=== PATIENT | female | born 1985 | race Two or more races ===

== ENCOUNTER 2022-12-28 05:42 | Observation (INO) | payer OTHER ==
[2022-12-28 05:45] VITALS: BMI 30.8
[2022-12-28 06:36] LABS: BASO % 0.8 % (0-2.0); EOS % 2.2 % (0-4.5); HEMATOCRIT 40.2 % (32.4-45.2); HEMOGLOBIN 13.1 GM/dL (10.7-15.3); LYMPH % 34.1 % (8-40); MCHC 32.6 g/dl (32.0-36.0); MEAN CELL VOLUME 76.8 fl (80-96); MEAN PLT VOLUME 7.9 fl (7.5-11.1); MONO % 8.9 % (3.8-10.2); PLATELET COUNT 279 10^3/uL (134-434); RBC 5.24 M/mm3 (3.60-5.2); WHITE BLOOD COUNT 6.6 K/mm3 (4.0-10.0)
[2022-12-28] MEDS ORDERED: METOCLOPRAMIDE HCL INJECTION 10 MG/2 ML VIAL IVPB ONE (06:40)
[2022-12-28] MEDS ORDERED: METOCLOPRAMIDE HCL INJECTION 10 MG/2 ML VIAL ONE (06:41)
[2022-12-28 06:48] LABS: INR 1.1 (0.83-1.09); PROTHROMBIN TIME (PATIENT) 12.7 SEC (9.7-13.0)
[2022-12-28 06:51] LABS: ACTIVATED PTT 25.8 SECONDS (25.2-36.5)
[2022-12-28 07:01] LABS: POTASSIUM 3.6 mmol/L (3.5-5.1)
[2022-12-28 07:03] LABS: ALBUMIN 3.1 g/dl (3.4-5.0)
[2022-12-28 07:04] LABS: BLOOD UREA NITROGEN 13.4 mg/dL (7-18)
[2022-12-28 07:06] LABS: CREATININE 0.9 mg/dL (0.55-1.3)
[2022-12-28 07:08] LABS: BILIRUBIN,TOTAL 0.6 mg/dL (0.2-1); TOT PROT 7.1 g/dl (6.4-8.2)
[2022-12-28] MEDS ORDERED: SODIUM CHLORIDE 0.9% 500 ML INFUS.BAG IV ONE ×2 (09:50→09:52)
[2022-12-28 10:45] LABS: BASO % 0.5 % (0-2.0); EOS % 0.2 % (0-4.5); HEMATOCRIT 34.8 % (32.4-45.2); HEMOGLOBIN 11.2 GM/dL (10.7-15.3); MCH 25.1 pg (25.7-33.7); MCHC 32.1 g/dl (32.0-36.0); MEAN CELL VOLUME 78.2 fl (80-96); MEAN PLT VOLUME 7.7 fl (7.5-11.1); MONO % 5.8 % (3.8-10.2); NEUT % 79.5 % (42.8-82.8); PLATELET COUNT 255 10^3/uL (134-434); RBC 4.45 M/mm3 (3.60-5.2); RDW 14.6 % (11.6-15.6); WHITE BLOOD COUNT 9.6 K/mm3 (4.0-10.0)
[2022-12-28] MEDS ORDERED: ACETAMINOPHEN 1000 MG/100 ML BAG IVPB ONE (14:06)
[2022-12-28] MEDS ORDERED: ACETAMINOPHEN INJECTION 100 ML IVPB ONE (14:21)
[2022-12-28 15:09] LABS: EPI CELLS 7 /uL (0-25.1); HYALINE CASTS 0 /uL (0-3.1); PH,URINE 5.5 (5.0-8.0); URINE APPEARANCE CLEAR; URINE BACTERIA 125 /uL (0-1359); URINE BILIRUBIN NEGATIVE (NEGATIVE); URINE COLOR YELLOW; URINE GLUCOSE (UA) NEGATIVE (NEGATIVE); URINE KETONE 1+ (NEGATIVE); URINE LEUK ESTERASE 1+ (NEGATIVE); URINE NITRITE NEGATIVE (NEGATIVE); URINE PROTEIN TRACE (NEGATIVE); URINE RBC 2924 /uL (0-23.9); URINE UROBILINOGEN 0.2 mg/dL (0.2-1.0); URINE WBC 35 /uL (0-25.8)
[2022-12-28] MEDS ORDERED: METHYLERGONOVINE MALEATE 0.2 MG/1 ML AMP IM ONE ×2 (15:14→18:15)
[2022-12-28] MEDS ORDERED: LACTATED RINGERS SOLUTION 1,000 ML IV SCH (15:15)
[2022-12-28] MEDS ORDERED: TRIMETHOBENZAMIDE HCL 200MG/2ML INJ IM ONE ×2 (19:28→20:03)
[2022-12-29] MEDS: LEVOTHYROXINE NA 150 MCG TABLET PO SCH (06:02)
[2022-12-29] MEDS: ACETAMINOPHEN 325 MG TABLET (FP) PO PRN ×2 (06:54→20:22)
[2022-12-29 07:33] LABS: INR 1.17 (0.83-1.09); PROTHROMBIN TIME (PATIENT) 13.5 SEC (9.7-13.0)
[2022-12-29 07:33] LABS: BASO % 0.4 % (0-2.0); EOS % 1.5 % (0-4.5); HEMATOCRIT 21.5 % (32.4-45.2); HEMOGLOBIN 7.1 GM/dL (10.7-15.3); LYMPH % 23.9 % (8-40); MCH 25.7 pg (25.7-33.7); MCHC 33.3 g/dl (32.0-36.0); MEAN CELL VOLUME 77.3 fl (80-96); MEAN PLT VOLUME 7.8 fl (7.5-11.1); MONO % 7.4 % (3.8-10.2); NEUT % 66.8 % (42.8-82.8); PLATELET COUNT 207 10^3/uL (134-434); RBC 2.78 M/mm3 (3.60-5.2); RDW 14.4 % (11.6-15.6); WHITE BLOOD COUNT 9.5 K/mm3 (4.0-10.0)
[2022-12-29 07:36] LABS: ACTIVATED PTT 25.7 SECONDS (25.2-36.5)
[2022-12-29 07:47] LABS: CHLORIDE 106 mmol/L (98-107); POTASSIUM 3.5 mmol/L (3.5-5.1); SODIUM 139 mmol/L (136-145)
[2022-12-29 07:53] LABS: ANION GAP 6 mmol/L (4-13); BLOOD UREA NITROGEN 11.2 mg/dL (7-18); CO2 26 mmol/L (21-32); GLUCOSE,RANDOM 97 mg/dL (74-106); MAGNESIUM 1.5 mg/dL (1.8-2.4)
[2022-12-29 07:56] LABS: CREATININE 0.7 mg/dL (0.55-1.3); PHOSPHOROUS 3.9 mg/dL (2.5-4.9); SGOT/AST 16 U/L (15-37); SGPT/ALT 16 U/L (13-61)
[2022-12-29 07:57] LABS: BILIRUBIN,TOTAL 0.7 mg/dL (0.2-1)
[2022-12-29 07:58] LABS: ALK PHOS 43 U/L (45-117)
[2022-12-29 08:21] LABS: ALBUMIN 2.2 g/dl (3.4-5.0); CALCIUM 6.8 mg/dL (8.5-10.1)
[2022-12-29] MEDS ORDERED: MAGNESIUM 2GM/50ML STERILE WATER IVPB IVPB ONE (09:45)
[2022-12-29] MEDS ORDERED: CALCIUM CARBONATE 650 MG TABLET PO ONE (11:59)
[2022-12-29] MEDS ORDERED: CALCIUM GLUCONATE 10% - 1,000 MG/10 ML VIAL IVPUSH ONE (12:22)
[2022-12-29] MEDS ORDERED: METOCLOPRAMIDE HCL 10 MG TABLET (FP) PO ONE (13:15)
[2022-12-29 13:24] LABS: HEMATOCRIT 20.8 % (32.4-45.2); HEMOGLOBIN 7.1 GM/dL (10.7-15.3); MCH 25.9 pg (25.7-33.7); MCHC 34.2 g/dl (32.0-36.0); MEAN CELL VOLUME 75.9 fl (80-96); PLATELET COUNT 220 10^3/uL (134-434); RBC 2.75 M/mm3 (3.60-5.2); RDW 14.9 % (11.6-15.6); WHITE BLOOD COUNT 9.1 K/mm3 (4.0-10.0)
[2022-12-29] MEDS: CALCITRIOL 0.25 MCG CAPSULE (FP) PO SCH ×2 (13:36→21:57)
[2022-12-29] MEDS: AMPICILLIN NA/SULBACTAM NA 1.5 GM in SODIUM CHLORIDE 100 ML IVPB SCH ×3 (14:52→23:12)
[2022-12-29] MEDS ORDERED: CALCIUM CARBONATE 650 MG TABLET PO SCH (15:00)
[2022-12-29] MEDS ORDERED: TRANEXAMIC ACID 1000 MG/10 ML VIAL IVPUSH ONE (15:00)
[2022-12-29] MEDS ORDERED: MISOPROSTOL 200 MCG TABLET PO STA (15:36)
[2022-12-29 18:34] LABS: BASO % 0.4 % (0-2.0); EOS % 2.5 % (0-4.5); HEMATOCRIT 24.8 % (32.4-45.2); HEMOGLOBIN 8.3 GM/dL (10.7-15.3); LYMPH % 19.5 % (8-40); MCH 26.4 pg (25.7-33.7); MCHC 33.6 g/dl (32.0-36.0); MEAN CELL VOLUME 78.5 fl (80-96); MEAN PLT VOLUME 7.7 fl (7.5-11.1); MONO % 8.9 % (3.8-10.2); NEUT % 68.7 % (42.8-82.8); PLATELET COUNT 210 10^3/uL (134-434); RBC 3.16 M/mm3 (3.60-5.2); RDW 15.5 % (11.6-15.6); WHITE BLOOD COUNT 13.1 K/mm3 (4.0-10.0)
[2022-12-29] MEDS ORDERED: AZITHROMYCIN 250 MG TABLET PO ONE ×2 (20:53→22:00)
[2022-12-29] MEDS ORDERED: MISOPROSTOL 200 MCG TABLET PR ONE (22:00)
[2022-12-29] MEDS: CALCIUM CARBONATE 650 MG TABLET PO SCH (23:05)
[2022-12-30] MEDS: AMPICILLIN NA/SULBACTAM NA 1.5 GM in SODIUM CHLORIDE 100 ML IVPB SCH ×2 (02:15→09:26)
[2022-12-30] MEDS: LEVOTHYROXINE NA 150 MCG TABLET PO SCH (06:23)
[2022-12-30] MEDS: CALCITRIOL 0.25 MCG CAPSULE (FP) PO SCH ×3 (06:23→22:52)
[2022-12-30 07:25] LABS: BASO % 0.5 % (0-2.0); EOS % 3.3 % (0-4.5); HEMATOCRIT 24.5 % (32.4-45.2); HEMOGLOBIN 8.4 GM/dL (10.7-15.3); LYMPH % 22.8 % (8-40); MCH 26.8 pg (25.7-33.7); MCHC 34.2 g/dl (32.0-36.0); MEAN CELL VOLUME 78.3 fl (80-96); MEAN PLT VOLUME 7.7 fl (7.5-11.1); NEUT % 66.4 % (42.8-82.8); PLATELET COUNT 178 10^3/uL (134-434); RBC 3.13 M/mm3 (3.60-5.2); RDW 14.8 % (11.6-15.6); WHITE BLOOD COUNT 11.4 K/mm3 (4.0-10.0)
[2022-12-30 07:33] LABS: CHLORIDE 106 mmol/L (98-107); POTASSIUM 3.4 mmol/L (3.5-5.1); SODIUM 139 mmol/L (136-145)
[2022-12-30 07:36] LABS: ALBUMIN 2.3 g/dl (3.4-5.0); ANION GAP 6 mmol/L (4-13); BLOOD UREA NITROGEN 9.8 mg/dL (7-18); CO2 27 mmol/L (21-32); GLUCOSE,RANDOM 96 mg/dL (74-106); MAGNESIUM 1.4 mg/dL (1.8-2.4)
[2022-12-30 07:39] LABS: CREATININE 0.7 mg/dL (0.55-1.3); PHOSPHOROUS 3.4 mg/dL (2.5-4.9); SGOT/AST 14 U/L (15-37); SGPT/ALT 17 U/L (13-61)
[2022-12-30 07:40] LABS: BILIRUBIN,TOTAL 0.3 mg/dL (0.2-1)
[2022-12-30 07:42] LABS: ALK PHOS 41 U/L (45-117)
[2022-12-30] MEDS: ACETAMINOPHEN 325 MG TABLET (FP) PO PRN ×2 (08:42→15:15)
[2022-12-30] MEDS ORDERED: MAGNESIUM 2GM/50ML STERILE WATER IVPB IVPB ONE (09:00)
[2022-12-30] MEDS: CALCIUM CARBONATE 650 MG TABLET PO SCH ×2 (10:06→22:52)
[2022-12-30] MEDS ORDERED: POTASSIUM CHLORIDE TABS 20 MEQ TABLET.ER (FP) PO ONE (13:30)
[2022-12-30] MEDS: CALCIUM GLUCONATE IN NACL 1 GM/50 ML BAG IVPB SCH ×2 (13:47→15:10)
[2022-12-30] MEDS: METOCLOPRAMIDE HCL 10 MG TABLET (FP) PO SCH ×3 (17:35→22:52)
[2022-12-30] MEDS: PIPERACILLIN/TAZOB 3.375 GM 3.375 GM in DEXTROSE 5%-WATER - 50 ML IVPB SCH (17:35)
[2022-12-30 19:47] LABS: BASO % 0.3 % (0-2.0); EOS % 2.6 % (0-4.5); HEMATOCRIT 24.8 % (32.4-45.2); HEMOGLOBIN 8.3 GM/dL (10.7-15.3); LYMPH % 16.6 % (8-40); MCH 26.3 pg (25.7-33.7); MCHC 33.5 g/dl (32.0-36.0); MEAN CELL VOLUME 78.6 fl (80-96); MONO % 5.4 % (3.8-10.2); NEUT % 75.1 % (42.8-82.8); PLATELET COUNT 198 10^3/uL (134-434); RBC 3.16 M/mm3 (3.60-5.2); WHITE BLOOD COUNT 12.5 K/mm3 (4.0-10.0)
[2022-12-31] MEDS: PIPERACILLIN/TAZOB 3.375 GM 3.375 GM in DEXTROSE 5%-WATER - 50 ML IVPB SCH ×2 (02:24→09:06)
[2022-12-31] MEDS: ACETAMINOPHEN 325 MG TABLET (FP) PO PRN ×2 (05:42→12:01)
[2022-12-31] MEDS: CALCITRIOL 0.25 MCG CAPSULE (FP) PO SCH ×2 (05:42→14:22)
[2022-12-31] MEDS: LEVOTHYROXINE NA 150 MCG TABLET PO SCH (06:41)
[2022-12-31] MEDS: METOCLOPRAMIDE HCL 10 MG TABLET (FP) PO SCH ×2 (06:41→12:01)
[2022-12-31 08:13] LABS: BASO % 0.4 % (0-2.0); EOS % 3.2 % (0-4.5); HEMOGLOBIN 7.6 GM/dL (10.7-15.3); LYMPH % 18.3 % (8-40); MCH 26.3 pg (25.7-33.7); MCHC 33.2 g/dl (32.0-36.0); MEAN CELL VOLUME 79.3 fl (80-96); MEAN PLT VOLUME 7.4 fl (7.5-11.1); MONO % 5.7 % (3.8-10.2); NEUT % 72.4 % (42.8-82.8); PLATELET COUNT 207 10^3/uL (134-434); RDW 15.2 % (11.6-15.6); WHITE BLOOD COUNT 11.7 K/mm3 (4.0-10.0)
[2022-12-31 08:32] LABS: HEMOGLOBIN 7.7 GM/dL (10.7-15.3); MCH 26.6 pg (25.7-33.7); MCHC 33.6 g/dl (32.0-36.0); MEAN CELL VOLUME 79.3 fl (80-96); MEAN PLT VOLUME 7.7 fl (7.5-11.1); PLATELET COUNT 211 10^3/uL (134-434); RDW 14.7 % (11.6-15.6); WHITE BLOOD COUNT 12.2 K/mm3 (4.0-10.0)
[2022-12-31 08:35] LABS: CHLORIDE 105 mmol/L (98-107); POTASSIUM 3.6 mmol/L (3.5-5.1); SODIUM 138 mmol/L (136-145)
[2022-12-31 08:38] LABS: GLUCOSE,RANDOM 104 mg/dL (74-106)
[2022-12-31 08:39] LABS: ALBUMIN 2.4 g/dl (3.4-5.0); ANION GAP 6 mmol/L (4-13); BLOOD UREA NITROGEN 10.9 mg/dL (7-18); CO2 27 mmol/L (21-32); MAGNESIUM 1.6 mg/dL (1.8-2.4)
[2022-12-31 08:41] LABS: SGPT/ALT 19 U/L (13-61)
[2022-12-31 08:42] LABS: CREATININE 0.7 mg/dL (0.55-1.3); PHOSPHOROUS 5.1 mg/dL (2.5-4.9); SGOT/AST 16 U/L (15-37)
[2022-12-31 08:43] LABS: BILIRUBIN,TOTAL 0.4 mg/dL (0.2-1); TOT PROT 5.3 g/dl (6.4-8.2)
[2022-12-31 08:44] LABS: ALK PHOS 42 U/L (45-117)
[2022-12-31 08:49] LABS: CALCIUM 6.5 mg/dL (8.5-10.1)
[2022-12-31] MEDS: CALCIUM CARBONATE 650 MG TABLET PO SCH (09:06)
[2022-12-31 09:09] VITALS: RESP 18
[2022-12-31] MEDS ORDERED: CALCIUM CARBONATE 650 MG TABLET PO SCH (14:00)
[2022-12-31] MEDS ORDERED: MAGNESIUM OXIDE 400 MG TABLET (FP) PO ONE (14:49)
[2022-12-31 14:56] VITALS: BP 95/58; PULSE 78; TEMP 98.8
== END 2022-12-31 16:18 | disposition home or self-care (01) ==
LOC: JER 05:42 → JERBED 15:04 → J4W 12-29 01:16
PROVIDERS: ADMIT Internal Medicine; ATTEND Internal Medicine
PROC: 3E033NZ Introduction of Analgesics, Hypnotics, Sedatives into Peripheral Vein, Percutaneous Approach (ICD-10-PCS; principal; 2022-12-28)
PROC: 3E03329 Introduction of Other Anti-infective into Peripheral Vein, Percutaneous Approach (ICD-10-PCS; 2022-12-28)
PROC: 3E033GC Introduction of Other Therapeutic Substance into Peripheral Vein, Percutaneous Approach (ICD-10-PCS; 2022-12-28)
PROC: 3E0337Z Introduction of Electrolytic and Water Balance Substance into Peripheral Vein, Percutaneous Approach (ICD-10-PCS; 2022-12-28)
PROC: 3E023GC Introduction of Other Therapeutic Substance into Muscle, Percutaneous Approach (ICD-10-PCS; 2022-12-28)
DX: O03.1 Delayed or excessive hemorrhage following incomplete spontaneous abortion (principal); E86.0 Dehydration; D62 Acute posthemorrhagic anemia; N93.9 Abnormal uterine and vaginal bleeding, unspecified; R10.2 Pelvic and perineal pain; R55 Syncope and collapse; Z86.19 Personal history of other infectious and parasitic diseases
CPT/HCPCS: 36415; 36430; 76817-TC; 76830-TC; 80053; 81003; 82962; 83735; 84100; 84702; 85025; 85027; 85610; 85730; 86850; 86900; 86901; 86922; 87077; 87086; 93005; 93010; 96361; 96365; 96372; 96375; 96376; 99285-25; G0378; P9058